=== PATIENT | female | born 1950 | race Caucasian/White ===

== ENCOUNTER 2016-08-29 15:49 | Emergency (ER) | payer MEDICARE ==
--- OUTSIDE RECORDS SUMMARY | 2016-08-29 16:33 | XMS REPORT | Continuity of Care Document ---
:1950 Author Organization [facility] ([facility]) Address [address] [place] [address] Phone [phone] Care Team Providers Name Role Phone Bronwyn Davis Primary Care Provider [phone] Source Comments This disclosure is being made pursuant to the Care Everywhere program, applicable federal and state laws, and may not contain all informaitonavailable regarding this patient.[facility] ([facility]) Active Allergies and Adverse Reactions No Known Allergies Current Medications Prescription Sig. Disp. Refills Start Date End Date Status LOVASTATIN PO Take 40 mg by mouth daily. Active Indications: HYPERCHOLESTEROLEMIA calcitonin 200 use 1 [place] into the nose Active unit/actuation daily. Alternate nostrils. nasal spray Indications: POST-MENOPAUSAL OSTEOPOROSIS azithromycin 500 Take 1 Tab by mouth daily. 3 Tab 0 05/25/2012 Active mg tablet Take for 3 days. For moderate to severe diarrhea. 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 Typhoid Vi Polysaccharide 05/25/2012 Social History Tobacco Use Types Packs/Day Years Used Date Former Smoker Cigarettes Quit: 03/20/1990 Last Filed Vital Signs Vital Sign Reading Time Taken Blood Pressure 135/82 05/25/2012 2:29 PM [employer] Pulse 100 05/25/2012 2:29 PM [employer] Temperature 36.2 C (97.2 F) 05/25/2012 2:29 PM [employer] Respiratory Rate - - Height - - Weight 72.1 kg (158 lb 15.2 oz) 05/25/2012 2:29 PM [employer] Body Mass Index - - Oxygen Saturation - - Plan of Care Health Maintenance Due Date Last Done Comments HCV Screening 1950 Hepatitis B Vaccine (1 of 3 - Primary Series) 1950 Tdap Vaccine 09/05/1959 Lipid Disorder Screening 1966 Td Vaccine 1966 Mammogram 1988 Colonoscopy 1998 Zoster Vaccine 2008 Osteoporosis Screening (DXA Bone Density) 2013 Pneumococcal Vaccine (1 of 2 - PCV13) 2013 Influenza Vaccine: Seasonal (#1) 10/19/2015 Results from Last 3 Months Not on file
--- NOTE | 2016-08-29 16:35 | ERNOTE ---
Lower Extremity HPI - Narrative Date of Service: 08/29/16 - General Lower Extremities Pain: ankle: right Time Seen by Provider: 08/29/16 16:23 Source: patient Exam Limitations: no limitations - Immun/Allergies/Home Medications Immunizations: IMMUNIZATION HX History of Influenza Vaccine Yes Hx Pneumococcal Vaccination Yes Allergies/Adverse Reactions: Allergies Allergy/AdvReac Type Severity Reaction Status Date / Time No Known Allergies Allergy Unverified 08/29/16 16:13 Home Medications: HOME MEDICATIONS Calcitonin,[place],Synthetic [Miacalcin Nasal [place]ita] 1 spray NS DAILY 08/29/16 [ Last Taken Unknown] Lovastatin 40 mg PO DAILY 08/29/16 [Last Taken Unknown] - History of Present Illness Narrative: Patient presents to the ED for right ankle injury. She took out the recycling and turned, twisting her ankle with immediate pain lateral right ankle. She has been able to walk on it but it hurts. No other injuries. No hip or knee pain. Has not seen anyone else for this. No acute focal weakness. Some mild tingling lateral right foot. Pain under control now. Worse with movement, better with rest. Occurred: just prior to arrival Location of Incident: home Method of Injury: Reports: twisted Reason for Fall: Reports: tripped Loss of Consciousness: Reports: no loss of consciousness Modifying Factors - (Improves): Reports: rest Modifying Factors - (Worsens): Reports: movement Associated Symptoms: Denies: unable to bear weight, other injuries Other Injuries: Reports: none Prior Treament: Denies: recently seen Review of Systems - Review of Systems Constitutional: Present: other - no head injury. Absent: fever Respiratory: Absent: shortness of breath Cardiology: Absent: chest pain Gastrointestinal/Abdominal: Absent: abdominal pain Skin: Present: other - no laceration Neurological: Absent: weakness - Patient's Past Medical History Patient History - Medical: No pertinent hx Patient History - Cardiac/Respiratory: Hypertension, Hyperlipidemia Patient History - Cancer: No Hx of Cancer Patient History - Surgical Procedures: Hysterectomy Patient History - Other: None - Social History Living Situations: home Psych History: No pertinent hx Alcohol Use: none Drug Use: none - Immunizations Hx Pneumococcal Vaccination: Yes History of Influenza Vaccine: Yes Physical Exam - Physical Exam General Appearance: Present: alert, no apparent distress Eye Exam: Normal inspection: bilateral, PERRL: bilateral Ears, Nose, Throat: Present: normal ENT inspection Neck: Present: nontender Respiratory: Present: no respiratory distress, normal breath sounds Cardiovascular/Chest: Present: regular rate, rhythm, normal peripheral pulses, other - strong DP pulses Gastrointestinal/Abdominal: Present: normal bowel sounds, nondistended, soft Back Exam: Present: no vertebral tenderness Extremity Exam: Present: other - right hip and knee non-tender. Foot is non- tender. Lateral ankle swellingon the right - mild. Mild lateral malleolus tenderness. No gross instability. Full stress testing not done d/t pain but no gross instability. Vidal testing reveals Achilles intact. Neurological Exam: Present: alert, normal mood/affect, no motor/sensory deficits , other - Sensation to LT intact. No motor deficits. Skin Exam: Present: other - no laceration ED Progress - Vital Signs Patient's Vital Signs:: I have reviewed the patient's vital signs. Vital Signs: Vital Signs 08/29/16 16:09 Temperature 36.5 C Pulse Rate 76 Respiratory 12 Rate Blood Pressure 156/86 O2 Sat by Pulse 96 Oximetry - X-Ray X-Ray #1 X-Ray: ankle Interpretation: Interp. by me X-ray Comments: I reviewed x-ray report - Progress/Reassessment Chief Complaint: Ankle Injury/ Pain Progress Note-Subjective: 08/29/16 17:14 She has no medial ankle tendenress, all lateral. I feel this small avulsion is old and she has no clinical Sx here. I feel air cast and PCP f/u most appropriate. D/W Patient. i discussed warning signs and reasons to return as well as the need for close f/u. Departure Clinical Impression: Ankle injury - Departure Disposition: Home self-care Condition: Stable Instructions: Ankle Pain Additional Instructions: Use air cast as directed. Rest. Ice. Elevation. Follow-up with your doctor in 3 days for a re-check. Return for increased pain, numbness, tingling, weakness or if your condition worsens or changes in any way. Referrals: Bronwyn Davis MD [Primary Care Provider] -
[2016-08-29 17:35] VITALS: BP 148/72
== END 2016-08-29 17:38 | disposition home or self-care (01) ==
LOC: ER 15:49
PROC: 2W3SX1Z Immobilization of Right Foot using Splint (ICD-10-PCS; principal; 2016-08-29)
DX: S99.911A Unspecified injury of right ankle, initial encounter (principal); X50.1XXA Overexertion from prolonged static or awkward postures, initial encounter; Y93.89 Activity, other specified; Y92.009 Unspecified place in unspecified non-institutional (private) residence as the place of occurrence of the external cause